=== PATIENT | female | born 1955 | race Caucasian/White ===

== ENCOUNTER 2017-02-02 05:57 | Day surgery (SDC) | payer BC ==
[2017-02-02] MEDS ORDERED: Dextrose 5%-Lactated Ringers 1,000 ML IV SCH (06:30)
[2017-02-02] MEDS ORDERED: Metoprolol Succinate 50 MG Tab.ER PO ONE (06:45)
[2017-02-02] MEDS ORDERED: Amphetamine/Dextroamphetamine Salts 10 MG Cap.ER PO ONE (06:45)
[2017-02-02] MEDS ORDERED: Bupivacaine 0.5%/EPINEPHrine 1:200,000 50 ML MDV ONE (06:46)
[2017-02-02] MEDS ORDERED: Ondansetron 4 MG/2 ML SDV ONE (07:06)
[2017-02-02] MEDS ORDERED: Dexamethasone 4 MG/ML SDV ONE (07:06)
[2017-02-02] MEDS ORDERED: Rocuronium 50 MG/5 ML Vial ONE (07:06)
[2017-02-02] MEDS ORDERED: Glycopyrrolate 0.2 MG/ML 5 ML MDV ONE (07:06)
[2017-02-02] MEDS ORDERED: Succinylcholine 200 MG/10 ML MDV ONE (07:06)
[2017-02-02] MEDS ORDERED: Propofol 200 MG/20 ML SDV ONE (07:06)
[2017-02-02] MEDS ORDERED: Scopolamine 1.5 MG Transdermal Patch ONE (07:07)
[2017-02-02] MEDS ORDERED: ceFAZolin 2 GM in Premix Bag 1 BAG IV ONE (07:45)
[2017-02-02] MEDS ORDERED: ceFAZolin 2 GM in Sodium Chloride 0.9% 50 ML IV ONE (07:45)
[2017-02-02] MEDS ORDERED: EPINEPHRINE NERVRT SCH ×4 (08:00)
[2017-02-02] MEDS ORDERED: [UNRECOGNIZED DRUG - OTHER] NERVRT SCH ×4 (08:00)
[2017-02-02] MEDS ORDERED: DEXAMETHASONE NERVRT SCH ×4 (08:00)
[2017-02-02] MEDS ORDERED: ROPIVACAINE NERVRT SCH ×4 (08:00)
[2017-02-02] MEDS ORDERED: Neostigmine Methylsulfate 1 MG/ML 5 ML Syringe ONE (08:08)
[2017-02-02] MEDS ORDERED: Ketorolac 60 MG/2 ML SDV ONE (08:08)
[2017-02-02] MEDS ORDERED: fentaNYL 100 MCG/2 ML SDV ONE ×2 (08:13→08:55)
[2017-02-02] MEDS ORDERED: Lactated Ringers 1,000 ML ONE (09:16)
[2017-02-02] MEDS ORDERED: HYDROmorphone/Normal Saline 15 MG/30 ML PCA IV PRN (09:26)
[2017-02-02] MEDS ORDERED: Naloxone 0.4 MG/ML SDV IVPUSH PRN (09:26)
[2017-02-02] MEDS ORDERED: Acetaminophen 325 MG Tab PO PRN (10:41)
[2017-02-02] MEDS ORDERED: Ondansetron 4 MG/2 ML SDV IV PRN (10:43)
[2017-02-02] MEDS ORDERED: Pantoprazole 40 MG Vial IV SCH (12:00)
[2017-02-02] MEDS: buPROPion 150 MG Tab.SR PO SCH ×2 (12:44→20:27)
[2017-02-02] MEDS: Acetaminophen/HYDROcodone 325-5 MG Tab PO PRN (12:44)
[2017-02-02] MEDS: Dextrose 5%-Lactated Ringers 1,000 ML IV SCH ×2 (13:41→22:24)
[2017-02-02] MEDS: ceFAZolin 2 GM in Sodium Chloride 0.9% 50 ML IV SCH ×2 (15:36→22:27)
[2017-02-02] MEDS: VERIFY SCOP PATCH TOP SCH (15:39)
[2017-02-02] MEDS ORDERED: Amitriptyline 25 MG Tab PO SCH (21:00)
[2017-02-03] MEDS ORDERED: rOPINIRole 1 MG Tab PO SCH (00:15)
[2017-02-03] MEDS: Acetaminophen/HYDROcodone 325-5 MG Tab PO PRN ×2 (01:50→07:43)
[2017-02-03 07:25] VITALS: BP 140/73
[2017-02-03] MEDS ORDERED: Levothyroxine 50 MCG Tab PO SCH (07:30)
[2017-02-03] MEDS: ceFAZolin 2 GM in Sodium Chloride 0.9% 50 ML IV SCH (07:43)
[2017-02-03] MEDS: buPROPion 150 MG Tab.SR PO SCH (08:57)
[2017-02-03] MEDS ORDERED: Metoprolol Succinate 50 MG Tab.ER PO SCH (09:00)
[2017-02-03] MEDS ORDERED: Raloxifene 60 MG Tab PO SCH (09:00)
[2017-02-03] MEDS ORDERED: Amphetamine/Dextroamphetamine Salts 10 MG Cap.ER PO SCH (09:00)
[2017-02-03] MEDS: VERIFY SCOP PATCH TOP SCH (09:03)
--- NOTE | 2017-02-03 09:16 | DISCH ---
ADMISSION DIAGNOSES: Intolerance to laparoscopic gastric band; gastroesophageal reflux disease; vitamin B complex deficiency; vitamin B12 deficiency; postsurgical malabsorption; vitamin D deficiency; hypothyroidism, mild; episode of recurrent major depression disorder; attention deficit hyperactivity disorder in adult; hypertension; restless legs syndrome; and osteoporosis. DISCHARGE DIAGNOSES: 1. EGD with polypectomy, gastric polyps, scattered erosions in esophagus, retained fluid in distal esophagus. 2. Operative procedures; diagnostic lap with partial gastrectomy, resection of partial stomach for evaluation of polyps, and removal of laparoscopic adjustable gastric band system. Date of surgery 02/02/2017. HISTORY: Ellen Chavarria is a 61-year-old female who developed intolerance to laparoscopic gastric band. After preoperative evaluation and discussion of possible risks and possible complications, she wished to proceed with surgical procedure. HOSPITAL COURSE: Ellen had her surgery on 02/02/2017. On 02/03/2017, she was ready to be discharged to home. The pain was managed. She tolerated the diet well, vital signs were stable, and activity is good. PHYSICAL EXAMINATION: GENERAL: Ellen Chavarria is a 61-year-old female. VITAL SIGNS: Height is 5 feet. Weight is 135 pounds. TPR is 96.9, 63, 18, and blood pressure 140/73. HEENT: Negative. NECK: Supple. HEART: Regular rate and rhythm. LUNGS: Clear. ABDOMEN: Dressings dry and intact. Abdominal binder is on. EXTREMITIES: Without peripheral edema. DISPOSITION: Discharged to home. CONDITION: Stable and improving. FOLLOWUP: Followup appointment with Celina Pike PA-C, on 02/13/2017 at 11 a.m. DISCHARGE MEDICATIONS: Home medications; [place] 5/325 mg 1 to 2 every 4 hours p.r.n. pain, #30; milk of magnesia 30 mL two were sent home with the patient, and she is to take one today when she gets home and one tomorrow. She is to resume all of her home medications. DISCHARGE DIET: Full liquid diet until first appointment. Drink 8 to 10 glasses of water a day. ACTIVITY: No lifting greater than 10 pounds for 4 weeks. Driving, do not drive while on pain medication. Shower/bathing, may shower. DISCHARGE INSTRUCTIONS: Notify provider of fever, increased pain, or nausea. Wound incision, keep site clean and dry. Wear abdominal binder for 2 weeks and then as tolerated. Special instruction; use incentive spirometer 10 times every hour while awake.
[2017-02-03] MEDS ORDERED: Magnesium Hydroxide 400 MG/5 ML Susp 30 ML Cup PO ONE (09:30)
--- NOTE | 2017-02-06 15:04 | OR ---
DATE OF PROCEDURE: 02/02/2017 PREOPERATIVE DIAGNOSIS: Intolerance to laparoscopic adjustable gastric band. POSTOPERATIVE DIAGNOSES: 1. Intolerance to laparoscopic adjustable gastric band associated with marked esophageal dilation and food retention within the esophagus. 2. Innumerable gastric polyps. 3. Nodular lesion on the surface of omentum. OPERATIVE PROCEDURE: 1. Esophagogastroduodenoscopy with gastric polypectomy (73725). 2. Diagnostic laparoscopy with: a. Removal of laparoscopic adjustable gastric band system (16927). b. Partial gastrectomy (resection of portion of the stomach for further evaluation of the polyps) (22771). c. Nodular lesion on the surface of omentum (81424). ANESTHESIA: General. ASSISTANTS: Celina Pike PA-C and DOMINIQUE Candelario. INDICATIONS FOR PROCEDURE: This is a 61-year-old female presenting for removal of a laparoscopic adjustable gastric band. This was placed in [place], [place] in 2009. Over the last few months, she has had progressive problems with severe heartburn, and despite the band being completely deflated at this point, she continues to have severe symptoms. She has not yet had an upper endoscopy. The plan will be to proceed with an upper GI endoscopy followed by removal of the band system. The former procedure would be to identify problems such as band erosion, which would alter the intraoperative management upon removal of the band. Potential risks of the procedure including bleeding, infection, leaks from any GI tract closures, as well as possibility of cardiopulmonary, septic, or hemorrhagic complications leading to were discussed. She is also aware that she will likely regain significant weight following the removal of the band system. Converting this to a gastric bypass had been discussed as an option, but the patient has declined that at this point. DETAILS OF PROCEDURE: The patient was taken to the operating room and placed in a supine position. After general endotracheal anesthesia was induced, she was converted to a lithotomy position. Stringer catheter was inserted. The upper GI endoscope was then passed orally through the length of the esophagus into the stomach and from there through the pyloric channel and into the junction of the third and fourth portions of the duodenum. The findings included a markedly dilated esophagus. There was some scattered solid food present along with quite a bit in the way of bile all consistent with the syndrome of esophageal dilation above the gastric band associated with disturbed esophageal motility, which has often been seen as a late complication of the gastric band. There was some diffuse redness present within the distal esophagus related to the bile and the food being present. There was no stricturing or narrowing of the point where the imprint of the band was present, i.e. there was no mechanical obstruction. A quite striking finding was that of innumerable polyps within the gastric fundus and body. These extended up to around 2 to 3 cm in size, and these most likely would be gastric fundic polyps related to long-term PPI use. Initially one of the polyps was excised by means of cautery snare and retrieved through the specimen gastric basket. The remainder of the upper GI endoscopic exam was unremarkable. The abdomen was then prepped and draped, and a transverse incision was made at 15 cm inferior, 5 cm left of xiphoid process, and the peritoneal cavity entered with an Optiview trocar. The peritoneal cavity was inflated to 15 mmHg pressure with CO2. Laparoscope reinserted. The patient was noted to have a large volume of air present. This was decompressed by means of gastrotomy. To provide additional histologic evaluation of polyps, a partial gastrectomy was performed at the site of the gastrotomy, and several additional polyps were contained within that specimen. This was accomplished with 2 firings of the LONI purple loads. At this point, upon the dissection along the band port tubing, it was noted that there was a nodular lesion on the omentum adjacent to this. This was excised and sent as a separate specimen. The port tubing was then cut at an angle to help confirm that the entire port tubing system was removed at the conclusion of the procedure. Following this, the attachments to the band were divided with electrocautery to the point where it was now mobile within the area around the stomach where we encircled it. The band was then divided with scissors and removed from the area around the stomach and delivered through the left lateral trocar site. At that point, no further intraabdominal problems were noted. The staple line at the gastric resection site was confirmed to be hemostatic and satisfactory in appearance. Trocars were removed. The fascia at the 12 and 15 mm sites was closed with 0 Vicryl stitch and the skin with a 4-0 Vicryl skin stitch. The port was then excised with extension of the lateral subcostal incision on the left side over the port. This was dissected away using electrocautery, and the remaining port tubing was removed without difficulty. The incision was then closed with 2 layers of 3-0 Vicryl stitch deep and then 4-0 Vicryl skin stitch. Dressing was applied. The patient was taken to the recovery room in satisfactory condition. Physician nursing assistant, Celina Pike, played an essential role in assisting in this case, helping to position the patient, retract structures as needed, as well as suturing and cutting sutures as indicated. Her presence improved the patient safety and decreased the operative time. Iglesia Bean MD /[id number]
== END 2017-02-03 09:35 | disposition home or self-care (01) ==
LOC: JP.SDS 05:57 → JP.2SS 09:30 → JP.SDS 02-03 09:35
PROVIDERS: ATTEND Surgery
DX: K31.7 Polyp of stomach and duodenum (principal); K95.09 Other complications of gastric band procedure; K21.9 Gastro-esophageal reflux disease without esophagitis; E55.9 Vitamin D deficiency, unspecified; E03.9 Hypothyroidism, unspecified; E78.5 Hyperlipidemia, unspecified; F33.0 Major depressive disorder, recurrent, mild; E53.9 Vitamin B deficiency, unspecified; I10 Essential (primary) hypertension; F90.0 Attention-deficit hyperactivity disorder, predominantly inattentive type; Z88.1 Allergy status to other antibiotic agents; Z88.8 Allergy status to other drugs, medicaments and biological substances; Z79.899 Other long term (current) drug therapy; Z90.49 Acquired absence of other specified parts of digestive tract; Z98.890 Other specified postprocedural states; Z90.710 Acquired absence of both cervix and uterus; Z98.84 Bariatric surgery status
CPT/HCPCS: 43251; 43610; 43774; 49203; A9270; C9113; J0171; J0330; J0690; J1100; J1170; J1885; J2405; J2704; J2710; J2795; J3010; J7042; J7050; J7120; 88300; 88305; 88307